=== PATIENT | female | born 1940 | race Caucasian/White ===

== ENCOUNTER → 2017-08-28 | Outpatient (CLI) | payer MEDICARE ==
[~2017-08-28] MED LIST: ALEN70 PO; BENZ100A PO; CARV6.25 PO; CEFP200 PO; CHOL10002 PO; LISI20 PO; Mobic7.5 MG PO; WARF5 PO; WARF7.5 PO
== END ==
LOC: LAB SHORT 14:34 → LAB EV 14:34
DX: R30.0 Dysuria (principal)
CPT/HCPCS: 87077; 87086; 87186

== ENCOUNTER 2019-03-11 07:43 | Day surgery (SDC) | payer MEDICARE ==
[~2019-03-11] VITALS: Ht 162.6 cm; Wt 66.4 kg
[~2019-03-11 07:43] MED LIST changes: +Coreg12.5 MG PO; +Metamucil Smooth1 EA PO; +Preservision A1 EACH PO
== END 2019-03-11 09:53 | disposition home or self-care (01) ==
LOC: ORSCSDS 07:43
PROVIDERS: Internal Medicine Gastroenterology
PROC: 0DJD8ZZ Inspection of Lower Intestinal Tract, Via Natural or Artificial Opening Endoscopic (ICD-10-PCS; principal; 2019-03-11 09:00)
DX: Z12.11 Encounter for screening for malignant neoplasm of colon (principal); Z86.010 Personal history of colon polyps; K57.30 Diverticulosis of large intestine without perforation or abscess without bleeding; Z80.0 Family history of malignant neoplasm of digestive organs; I48.91 Unspecified atrial fibrillation; K21.9 Gastro-esophageal reflux disease without esophagitis; Z79.01 Long term (current) use of anticoagulants; Z79.899 Other long term (current) drug therapy
CPT/HCPCS: J0330; J0461; J2405; J2704; J7120

== ENCOUNTER 2025-04-08 22:29 | Emergency (ER) | payer MEDICARE ==
[~2025-04-08] VITALS: Ht 162.6 cm; Wt 61.2 kg
[2025-04-08] MEDS ORDERED: Tranexamic Acid 100 ML IV SCH (22:40)
[2025-04-08] MEDS ORDERED: Fluticasone 0.05% Nasal Spray SCH (22:40)
[2025-04-09 01:11] VITALS: BP 186/106
== END 2025-04-09 01:26 | disposition home or self-care (01) ==
LOC: ER 22:29
DX: R04.0 Epistaxis (principal); I48.91 Unspecified atrial fibrillation; I10 Essential (primary) hypertension; Z79.01 Long term (current) use of anticoagulants; Z88.0 Allergy status to penicillin; Z88.2 Allergy status to sulfonamides
CPT/HCPCS: 30901; 93005; 93010; 99283-25; A9270

== ENCOUNTER 2025-04-11 11:55 | Emergency (ER) | payer MEDICARE ==
[~2025-04-11] VITALS: Ht 162.6 cm; Wt 61.2 kg
[2025-04-11 12:06] VITALS: BP 131/88
== END 2025-04-11 13:39 | disposition home or self-care (01) ==
LOC: ER 11:55
DX: Z48.813 Encounter for surgical aftercare following surgery on the respiratory system (principal); I10 Essential (primary) hypertension; I48.91 Unspecified atrial fibrillation; Z88.2 Allergy status to sulfonamides; Z88.0 Allergy status to penicillin; Z79.01 Long term (current) use of anticoagulants; Z79.899 Other long term (current) drug therapy
CPT/HCPCS: 99282